=== PATIENT | female | born 1940 | race Caucasian/White ===

== ENCOUNTER → 2017-09-29 | Outpatient (CLI) | payer BC ==
[2017-09-29 13:35] LABS: CHLORIDE 106 mEq/L (98-107)
== END | disposition home or self-care (01) ==
LOC: LAB 12:36
PROVIDERS: ATTEND Specialist
DX: I11.9 Hypertensive heart disease without heart failure (principal); R79.89 Other specified abnormal findings of blood chemistry
CPT/HCPCS: 36415; 80053

== ENCOUNTER 2023-11-30 15:13 | Emergency (ER) | payer BC ==
[~2023-11-30] VITALS: Ht 154.9 cm; Wt 60.0 kg
[2023-11-30 15:36] VITALS: TEMP 98.7; O2SAT 100
[2023-11-30 17:30] VITALS: BP 129/36; PULSE 76; RESP 16; O2SAT 100
== END 2023-11-30 18:09 | disposition home or self-care (01) ==
LOC: ER 15:13
DX: S80.211A Abrasion, right knee, initial encounter (principal); M54.2 Cervicalgia; M25.511 Pain in right shoulder; I10 Essential (primary) hypertension; W18.39XA Other fall on same level, initial encounter; Y93.89 Activity, other specified; Y92.89 Other specified places as the place of occurrence of the external cause; Y99.8 Other external cause status
CPT/HCPCS: 73030; 73560; 99284